=== PATIENT | male | born 1985 | race Caucasian/White ===

== ENCOUNTER 2022-01-17 15:11 | Emergency (ER) | payer MEDICAID ==
[~2022-01-17] VITALS: Ht 190.5 cm; Wt 111.3 kg
[2022-01-17] MEDS ORDERED: BACTRIM DS1 TAB PO (15:34)
[2022-01-17] MEDS ORDERED: TRAMADOL HYDROC50 M1 PO (15:34)
[2022-01-17] MEDS ORDERED: CEPHALEXIN500 MG PO (15:34)
[2022-01-17 15:46] VITALS: BP 170/116
== END 2022-01-17 15:51 | disposition home or self-care (01) ==
LOC: ED 15:11
DX: L03.211 Cellulitis of face (principal); R03.0 Elevated blood-pressure reading, without diagnosis of hypertension

== ENCOUNTER 2023-02-15 13:53 | Emergency (ER) | payer OTHER, MEDICAID ==
[~2023-02-15] VITALS: Ht 190.5 cm; Wt 111.0 kg
[~2023-02-15 13:53] MED LIST: BACTRIM DS1 TAB PO; CEPHALEXIN500 MG PO; TRAMADOL HYDROC50 M1 PO
[2023-02-15 14:13] VITALS: BP 164/106
[2023-02-15 14:30] VITALS: BP 122/72
[2023-02-15 15:00] VITALS: BP 135/78
[2023-02-15 15:30] VITALS: BP 155/108
[2023-02-15] MEDS ORDERED: KEFLEX500 MG PO (15:54)
[2023-02-15 16:00] VITALS: BP 132/81
== END 2023-02-15 16:00 | disposition home or self-care (01) ==
LOC: ED 13:53
DX: S61.317A Laceration without foreign body of left little finger with damage to nail, initial encounter (principal); W23.0XXA Caught, crushed, jammed, or pinched between moving objects, initial encounter; Y93.89 Activity, other specified; Y92.009 Unspecified place in unspecified non-institutional (private) residence as the place of occurrence of the external cause

== ENCOUNTER 2024-04-17 21:46 | Emergency (ER) | payer BC ==
[~2024-04-17] VITALS: Ht 190.5 cm; Wt 130.0 kg
[~2024-04-17 21:46] MED LIST changes: +KEFLEX500 MG PO
[2024-04-17 22:02] VITALS: BP 146/92
[2024-04-17 22:30] VITALS: BP 131/88
[2024-04-17] MEDS ORDERED: LISINOPRIL20 M1 PO (22:31)
[2024-04-17] MEDS ORDERED: AMLODIPINE BESY10 MG PO (22:31)
[2024-04-17] MEDS ORDERED: METOPROLOL TARTRATE 25 MG/TAB PO ONE (22:40)
[2024-04-17 22:42] LABS: BASO% 0.1 % (0-3); EOS% 2.3 % (0-8); HEMATOCRIT 45.5 % (39.0-50.0); IMMATURE GRANULOCYTES 0.2 % (0.0-5.0); LYMPH% 37.2 % (15-41); MEAN CELL VOLUME 92.7 fL CALC (80.0-100.0); MEAN CORPUSCULAR HGB 30.5 pG CALC (26.0-32.0); NEUT# 4.61 thou/uL (1.82-7.42); NEUT% 53.2 % (42-76); RED BLOOD COUNT 4.91 mill/uL (4.70-6.10); RED CELL DISTRI WIDTH 12.3 % (11.5-15.5)
[2024-04-17 22:59] LABS: D-DIMER 0.17 mg/L (0.19-0.60)
[2024-04-17 23:00] VITALS: BP 130/85
[2024-04-17 23:01] LABS: ALBUMIN 4.4 g/dL (3.2-5.0); ALKALINE PHOSPHATASE 56 u/l (38-126); BILIRUBIN, TOTAL 0.5 mg/dL (0.2-1.3); BUN 13 mg/dL (9-20); BUN/CREATININE RATIO 12 (12-20 (CALC)); CARBON DIOXIDE 23 mmol/l (22-30); CREATININE 1.1 mg/dL (0.7-1.3); ESTIMATED GFR 87 ML/MIN (>=90 (CALC)); MAGNESIUM 2.1 mg/dL (1.6-2.3); SGOT/AST 29 u/l (17-59); TOTAL PROTEIN 7.3 g/dL (6.3-8.2)
[2024-04-17 23:21] LABS: ACT PARTIAL THROMBO TIME 25.5 SECONDS (20.0-32.5); ANION GAP 11 (6-22 (CALC)); CHLORIDE 110 mmol/l (95-108); INTERNATIONAL NORMALIZED RATIO 1.1 RATIO (0.7-1.3); POTASSIUM 4.2 mmol/l (3.5-5.1); SODIUM 140 mmol/l (137-146)
[2024-04-17 23:22] LABS: PROTHROMBIN TIME 10.4 SECONDS (9.0-12.5)
[2024-04-17 23:30] VITALS: BP 140/96
[2024-04-18] VITALS: BP 121/81
[2024-04-18] MEDS ORDERED: TOPROL XL50 MG PO (00:02)
[2024-04-18 00:11] VITALS: BP 121/81
[2024-04-18 02:01] LABS: URINE BILIRUBIN - DIPSTICK Negative (NEGATIVE); URINE BLOOD DIPSTICK Negative (NEGATIVE); URINE GLUCOSE - DIPSTICK Negative (NEGATIVE); URINE KETONE Negative (NEGATIVE); URINE LEUK ESTERASE Negative (NEGATIVE); URINE NITRITE - DIPSTICK Negative (Negative); URINE PROTEIN - DIPSTICK Negative (NEG-TRACE); URINE UROBILINOGEN - DIPSTICK 0.2 E.U./dL (0.2)
[2024-04-18 02:02] LABS: URINE COLOR Yellow
== END 2024-04-18 00:14 | disposition home or self-care (01) | DRG 310 ==
LOC: ED 21:46
PROVIDERS: Family Medicine
DX: I49.3 Ventricular premature depolarization (principal)